=== PATIENT | male | born 1955 | race Two or more races ===

== ENCOUNTER 2024-08-25 06:05 | Day surgery (SDC) | payer OTHER ==
[2024-08-25] MEDS ORDERED: LIDOCAINE HCL 1% 20ML VIAL IJ ONE (10:45)
[2024-08-25] MEDS ORDERED: HEPARIN SODIUM,PORCINE 500 UNITS/5 ML VIAL IV ONE (10:45)
[2024-08-25] MEDS ORDERED: CIPROFLOXACIN IN 5 % DEXTROSE 400 MG/200 ML PIGGYBAG IV ONE (10:45)
[2024-08-25] MEDS ORDERED: FAMOTIDINE/PF 20 MG/10 ML SYRINGE IV SCH (11:30)
[2024-08-25] MEDS ORDERED: 0.9 % SODIUM CHLORIDE 1,000 ML IV SCH (12:45)
[2024-08-25] MEDS ORDERED: FAMOtidine 20 MG TABLET PO SCH (12:47)
[2024-08-25] MEDS ORDERED: DEXAMETHASONE SODIUM PHOSPHATE 4 MG/ML VIAL IV STA (12:47)
[2024-08-25] MEDS ORDERED: DOCUSATE SODIUM 100MG CAP PO SCH (17:00)
[2024-08-25] MEDS ORDERED: DEXAMETHASONE SODIUM PHOSPHATE 4 MG/ML VIAL IV SCH (18:00)
== END 2024-08-25 14:10 | disposition home or self-care (01) ==
LOC: CIR.AMB 06:05 → O/R 12:55 → CIR.AMB 13:30 → O/R 14:10
PROVIDERS: ATTEND Specialist
DX: C83.30 Diffuse large B-cell lymphoma, unspecified site (principal); I10 Essential (primary) hypertension; Z88.0 Allergy status to penicillin
CPT/HCPCS: 36561; C1751

== ENCOUNTER 2024-08-31 06:05 | Emergency (ER) | payer OTHER ==
[~2024-08-31] VITALS: Ht 175.3 cm; Wt 76.2 kg
[2024-08-31 07:24] LABS: PH,URINE 5.5 (5.0-8.0); URINE APPEARANCE Clear; URINE BILIRRUBIN Negative (NEGATIVE); URINE BLOOD Large; URINE COLOR Yellow; URINE GLUCOSE Negative (NEGATIVE); URINE KETONE 15 (NEGATIVE); URINE LEUKOCYTE Moderate; URINE NITRATE Positive; URINE PROTEIN 30 (NEGATIVE); URINE UROBILINOGEN 0.2 E.U./dl
[2024-08-31 07:28] LABS: URINE EPITHELIAL CELLS 7.7 uL (0.0-38.8); URINE WBC 397.6 uL (0.0-23.2)
[2024-08-31 08:17] LABS: URINE BACTERIA > 9821.5 uL (0.0-1933); URINE CAST 0.61 uL (0.0-1.40)
[2024-08-31 08:47] LABS: HEMATOCRIT 39.6 % (39.0-48.0); HEMOGLOBIN 13.1 g/dL (13-16.00); MEAN CELL VOLUME 87.3 fL (80.0-100.00); MEAN CORPUSCULAR HEMOGLOBIN 28.9 pg (27.00-32.0); MEAN CORPUSCULAR HGB CONC 33.2 g/dl (32.0-36.0); PLATELET COUNT 236 K/uL (150-450); RED BLOOD COUNT 4.54 M/uL (4.00-6.00); RED CELL DISTRIBUTION WIDTH 14.1 % (11.5-14.5)
[2024-08-31 09:18] LABS: CALCIUM 9.7 mg/dL (8.5-10.1); CREATININE SERUM 0.96 mg/dL (0.70-1.30); GFR 77.89; POTASSIUM 3.99 mEq/L (3.5-5.1)
[2024-08-31] MEDS ORDERED: PEPCID AC20 MG PO (09:44)
[2024-08-31] MEDS ORDERED: TAMS0.4C PO (09:44)
[2024-08-31] MEDS ORDERED: BACTRIM DS TAB1 EACH PO (09:44)
== END 2024-08-31 10:16 | disposition home or self-care (01) ==
LOC: ER 06:05
PROVIDERS: General Practice
DX: N39.0 Urinary tract infection, site not specified (principal); R33.8 Other retention of urine; Z88.0 Allergy status to penicillin

== ENCOUNTER 2024-09-16 02:14 | Inpatient (IN) | payer OTHER ==
[~2024-09-16] VITALS: Ht 152.4 cm; Wt 63.5 kg
[~2024-09-16 02:14] MED LIST: BACTRIM DS TAB1 EACH PO; PEPCID AC20 MG PO; TAMS0.4C PO
[2024-09-16] MEDS ORDERED: ROSUVASTATIN CA10 MG PO (02:20)
[2024-09-16] MEDS ORDERED: AMLODIPINE BESYL5 MG PO (02:20)
[2024-09-16] MEDS ORDERED: SPIRONOLACTONE25 MG PO (02:21)
[2024-09-16] MEDS ORDERED: ENALAPRIL-HCTZ1 EAC1 PO (02:21)
[2024-09-16] MEDS ORDERED: RAYOS1 MG PO (02:24)
[2024-09-16] MEDS ORDERED: 0.9 % SODIUM CHLORIDE 1,000 ML IV ONE (03:15)
[2024-09-16] MEDS ORDERED: ALBUTEROL SULFATE 3 ML/2.5 MG AMPUL.NEB IH SCH ×3 (03:15→13:00)
[2024-09-16 03:30] LABS: HEMOGLOBIN 13.3 g/dL (13-16.00); MEAN CELL VOLUME 85.6 fL (80.0-100.00); MEAN CORPUSCULAR HEMOGLOBIN 28.3 pg (27.00-32.0); PLATELET COUNT 325 K/uL (150-450); RED CELL DISTRIBUTION WIDTH 15.1 % (11.5-14.5)
[2024-09-16 03:33] LABS: HEMATOCRIT 40.4 % (39.0-48.0)
[2024-09-16 04:02] LABS: ALBUMIN 2.7 gm/dL (3.4-5.0); BILIRUBIN TOTAL 0.57 mg/dL (0.3-1.2); CALCIUM 8.6 mg/dL (8.5-10.1); CREATININE SERUM 1.06 mg/dL (0.70-1.30); GFR 69.47; GLOBULINA 4.9 G/DL (2.4-3.5); POTASSIUM 4.99 mEq/L (3.5-5.1); TOTAL PROTEIN 7.6 gm/dL (6.4-8.2)
[2024-09-16 04:12] LABS: PH,URINE 5.5 (5.0-8.0); URINE APPEARANCE Turbid; URINE BILIRRUBIN Negative (NEGATIVE); URINE BLOOD Large; URINE COLOR Dark Yellow; URINE GLUCOSE Negative (NEGATIVE); URINE KETONE Negative (NEGATIVE); URINE LEUKOCYTE Moderate; URINE NITRATE Positive; URINE PROTEIN 30 (NEGATIVE)
[2024-09-16 04:15] LABS: URINE CAST 3.05 uL (0.0-1.40); URINE EPITHELIAL CELLS 4.6 uL (0.0-38.8); URINE RBC 172.2 uL (0.0-20.8); URINE WBC 297.7 uL (0.0-23.2)
[2024-09-16 04:55] LABS: URINE BACTERIA > 9821.5 uL (0.0-1933)
[2024-09-16 04:57] LABS: URINE CRYSTALS FEW /HPF; URINE MUCUS SCANT; URINE YEAST FEW /hpf
[2024-09-16 05:58] LABS: ABG PH 7.369 (7.35-7.45); ABG PO2 55.5 mmHg (80-100); ABG pCO2 37.8 mmHg (35-45); BASE EXCESS -3.5 mmol/l; BICARBONATE 21.3 mmol/l (23-25); SaO2 87.1 %; Tco2 22.4 mmol/l
[2024-09-16 05:59] LABS: allen test SATISFACTORY; o2 32 %; puncture site RADIAL RIGHT
[2024-09-16] MEDS ORDERED: ALBUTEROL SULFATE 3 ML/2.5 MG AMPUL.NEB IH STA (06:22)
[2024-09-16] MEDS ORDERED: FUROsemide 40 MG/4 ML VIAL IV STA (06:51)
[2024-09-16] MEDS ORDERED: LEVALBUTEROL HCL 0.63 MG/3 ML SOLUTION IH SCH (08:00)
[2024-09-16] MEDS ORDERED: ONDANSETRON HCL 2 MG/ML VIAL IV ONE (08:00)
[2024-09-16 09:19] LABS: ABG PO2 72.4 mmHg (80-100); ABG pCO2 45.4 mmHg (35-45); BASE EXCESS -4.7 mmol/l; BICARBONATE 21.8 mmol/l (23-25); SaO2 92.1 %
[2024-09-16 09:20] LABS: Tco2 23.2 mmol/l; allen test SATISFACTORY; o2 100 %; puncture site RADIAL RIGHT
[2024-09-16] MEDS ORDERED: FAMOTIDINE/PF 20 MG/10 ML SYRINGE IV PUSH SCH (11:57)
[2024-09-16] MEDS ORDERED: levoFLOXacin IN DEXTROSE 5 % 150 ML IV SCH (12:04)
[2024-09-16] MEDS ORDERED: FUROsemide 20 MG/2 ML VIAL IV SCH (12:05)
[2024-09-16] MEDS ORDERED: ACETAMINOPHEN 325 MG TABLET PO PRN (12:15)
[2024-09-16] MEDS ORDERED: 0.9 % SODIUM CHLORIDE 1,000 ML IV SCH (12:15)
[2024-09-16] MEDS ORDERED: ENALAPRIL MALEATE 10 MG TABLET PO SCH (12:20)
[2024-09-16] MEDS ORDERED: TAMSULOSIN HCL 0.4 MG CAP PO SCH (12:21)
[2024-09-16] MEDS ORDERED: AMLODIPINE BESYLATE 5 MG TABLET PO SCH (12:21)
[2024-09-16] MEDS ORDERED: ACETAMINOPHEN 500 MG GEL..CAP PO PRN (12:30)
[2024-09-16 14:03] LABS: ALBUMIN 2.4 gm/dL (3.4-5.0); BILIRUBIN TOTAL 0.29 mg/dL (0.3-1.2); CALCIUM 8.4 mg/dL (8.5-10.1); CREATININE SERUM 0.99 mg/dL (0.70-1.30); GFR 75.17; GLOBULINA 4.3 G/DL (2.4-3.5); POTASSIUM 4.34 mEq/L (3.5-5.1); TOTAL PROTEIN 6.7 gm/dL (6.4-8.2)
[2024-09-16 14:05] VITALS: BP 129/79; O2SAT 99
[2024-09-16 14:05] LABS: C-REACTIVE PROTEIN 18.7 MG/DL (0.00-0.29)
[2024-09-16 15:13] VITALS: BP 125/80; O2SAT 99
[2024-09-16] MEDS ORDERED: AMINO ACIDS/PROTEIN HYDROLYS 30 ML BLIST.PACK PO SCH (17:00)
[2024-09-16] MEDS ORDERED: FAMOTIDINE/PF 20 MG/2 ML VIAL IV SCH (21:00)
[2024-09-16 21:28] LABS: INR 1.05; PROTHROMBIN TIME 11.4 SECONDS (9.0-11.5)
[2024-09-17 00:17] VITALS: BP 98/63; O2SAT 99
[2024-09-17 02:38] VITALS: BP 94/65; O2SAT 98
[2024-09-17 06:04] VITALS: BP 110/73; O2SAT 100
[2024-09-17 07:36] LABS: HEMATOCRIT 33.8 % (39.0-48.0); HEMOGLOBIN 11.4 g/dL (13-16.00); MEAN CELL VOLUME 84.7 fL (80.0-100.00); MEAN CORPUSCULAR HEMOGLOBIN 28.6 pg (27.00-32.0); MEAN CORPUSCULAR HGB CONC 33.8 g/dl (32.0-36.0); PLATELET COUNT 264 K/uL (150-450); RED BLOOD COUNT 3.99 M/uL (4.00-6.00); RED CELL DISTRIBUTION WIDTH 14.9 % (11.5-14.5)
[2024-09-17 08:40] VITALS: BP 109/71; O2SAT 100
[2024-09-17 11:00] VITALS: BP 94/66; O2SAT 100
[2024-09-17] MEDS ORDERED: ONDANSETRON HCL 4 MG in DEXTROSE 5 % IN WATER 50 ML IV PRN (12:15)
[2024-09-17 12:24] LABS: ABG PH 7.394 (7.35-7.45); ABG PO2 172.6 mmHg (80-100); BICARBONATE 26.3 mmol/l (23-25); SaO2 99.5 %; Tco2 27.6 mmol/l; o2 100 %
[2024-09-17 12:25] LABS: allen test SATISFACTORY; puncture site RADIAL RIGHT
[2024-09-17] MEDS ORDERED: ONDANSETRON HCL 2 MG/ML VIAL IV PRN (12:45)
[2024-09-17 15:00] VITALS: BP 104/72; O2SAT 99
[2024-09-17 19:29] LABS: GLU PLEURAL FLUID 103 mg/dl; LDH PLEURAL FLUID 958 U/L
[2024-09-17 19:36] LABS: PLEURAL FLUID APPEARANCE TURBID; PLEURAL FLUID COLOR YELLOW
[2024-09-17 19:41] LABS: CHOL PLEURAL FLUID < 50 mg/dl; TP PLEURAL FLUID 3.5 g/dl
[2024-09-17 20:18] LABS: POLYMORPHONUCLEAR 99 %
[2024-09-17 20:19] LABS: MONONUCLEAR 1 %
[2024-09-17] MEDS ORDERED: FUROsemide 40 MG/4 ML VIAL IV SCH (21:00)
[2024-09-18 00:31] VITALS: BP 100/59; O2SAT 97
[2024-09-18 05:25] VITALS: BP 99/66; O2SAT 100
[2024-09-18 07:15] LABS: HEMATOCRIT 34.3 % (39.0-48.0); HEMOGLOBIN 11.4 g/dL (13-16.00); MEAN CORPUSCULAR HEMOGLOBIN 28.2 pg (27.00-32.0); MEAN CORPUSCULAR HGB CONC 33.2 g/dl (32.0-36.0); PLATELET COUNT 235 K/uL (150-450); RED BLOOD COUNT 4.03 M/uL (4.00-6.00); RED CELL DISTRIBUTION WIDTH 15.1 % (11.5-14.5)
[2024-09-18 07:30] VITALS: BP 95/64; O2SAT 99
[2024-09-18 07:43] LABS: ALBUMIN 1.9 gm/dL (3.4-5.0); BILIRUBIN TOTAL 0.67 mg/dL (0.3-1.2); CALCIUM 8.6 mg/dL (8.5-10.1); CREATININE SERUM 0.8 mg/dL (0.70-1.30); GFR 96.13; GLOBULINA 3.8 G/DL (2.4-3.5); MAGNESIUM 2.2 mg/dL (1.8-2.4); PHOSPHOROUS 2.5 mg/dL (2.5-4.9); POTASSIUM 4.72 mEq/L (3.5-5.1); TOTAL PROTEIN 5.7 gm/dL (6.4-8.2)
[2024-09-18 07:49] LABS: PROSTATIC SPECIFIC ANTIGEN 7.03 NG/ML (0.010-4.00)
[2024-09-18 08:43] LABS: MYCOPLASMA PNEUMONIAE IGM NON REACTIVE (NO REACTIVE)
[2024-09-18 08:46] LABS: ABG PH 7.448 (7.35-7.45); ABG PO2 324.8 mmHg (80-100); ABG pCO2 41.5 mmHg (35-45); BASE EXCESS 3.7 mmol/l; SaO2 99.9 %; Tco2 29.3 mmol/l
[2024-09-18 11:00] VITALS: BP 91/61; O2SAT 97
[2024-09-18] MEDS ORDERED: CEFTRIAXONE SODIUM 2,000 MG VIAL IV SCH (14:00)
[2024-09-18 14:11] VITALS: BP 96/60; O2SAT 93
[2024-09-18 15:58] LABS: allen test SATISFACTORY; o2 100 %; puncture site RADIAL RIGHT
[2024-09-18 23:00] VITALS: BP 93/60; O2SAT 95; O2SAT 99
[2024-09-19] VITALS: BP 87/51; BP 90/55; O2SAT 95
[2024-09-19 01:00] VITALS: BP 84/53; O2SAT 96
[2024-09-19 02:00] VITALS: BP 126/77; BP 82/52; O2SAT 100; O2SAT 98
[2024-09-19 03:00] VITALS: BP 93/59; O2SAT 97
[2024-09-19 07:37] VITALS: BP 100/70; O2SAT 97
[2024-09-19 16:00] VITALS: BP 98/63; O2SAT 97
[2024-09-20 00:39] VITALS: BP 109/59; O2SAT 97
[2024-09-20 08:34] LABS: PH,URINE 5.5 (5.0-8.0); URINE APPEARANCE Cloudy; URINE BILIRRUBIN Negative (NEGATIVE); URINE BLOOD Negative; URINE COLOR Yellow; URINE GLUCOSE Negative (NEGATIVE); URINE KETONE Negative (NEGATIVE); URINE LEUKOCYTE Small; URINE NITRATE Negative; URINE PROTEIN Trace (NEGATIVE)
[2024-09-20 08:41] LABS: URINE BACTERIA 534.1 uL (0.0-1933); URINE CAST 2.13 uL (0.0-1.40); URINE EPITHELIAL CELLS 3.8 uL (0.0-38.8); URINE RBC 104.8 uL (0.0-20.8); URINE WBC 137.9 uL (0.0-23.2)
[2024-09-20 08:53] VITALS: BP 116/66; O2SAT 97
[2024-09-20 09:08] LABS: URINE CRYSTALS MANY /HPF; URINE YEAST MANY /hpf
[2024-09-20 19:05] VITALS: BP 111/68; O2SAT 96
[2024-09-21 00:54] VITALS: BP 107/68; O2SAT 97
[2024-09-21 08:00] VITALS: BP 113/60; O2SAT 96
[2024-09-21 14:27] LABS: ABG PH 7.496 (7.35-7.45); ABG PO2 63.8 mmHg (80-100); ABG pCO2 36.3 mmHg (35-45); BASE EXCESS 4.3 mmol/l; BICARBONATE 27.4 mmol/l (23-25); SaO2 94.2 %; Tco2 28.5 mmol/l; allen test SATISFACTORY; o2 21 %; puncture site RADIAL RIGHT
[2024-09-21 17:33] VITALS: BP 127/70; O2SAT 99
[2024-09-22 00:45] VITALS: BP 103/69; O2SAT 99
[2024-09-22 08:48] LABS: ALBUMIN 1.8 gm/dL (3.4-5.0); BILIRUBIN TOTAL 0.59 mg/dL (0.3-1.2); CALCIUM 7.8 mg/dL (8.5-10.1); CREATININE SERUM 0.54 mg/dL (0.70-1.30); GFR 151.3; GLOBULINA 2.9 G/DL (2.4-3.5); POTASSIUM 3.85 mEq/L (3.5-5.1); TOTAL PROTEIN 4.7 gm/dL (6.4-8.2)
[2024-09-22 09:22] VITALS: BP 108/66; O2SAT 96
[2024-09-22 10:54] LABS: HEMOGLOBIN 9.9 g/dL (13-16.00); MEAN CELL VOLUME 85.7 fL (80.0-100.00); MEAN CORPUSCULAR HEMOGLOBIN 28.4 pg (27.00-32.0); MEAN CORPUSCULAR HGB CONC 33.1 g/dl (32.0-36.0); RED CELL DISTRIBUTION WIDTH 15.1 % (11.5-14.5)
[2024-09-22 10:57] LABS: PLATELET COUNT 86 K/uL (150-450)
[2024-09-22] MEDS ORDERED: FLUCONAZOLE IN NACL,ISO-OSM 200 MG/100 ML PIGGYBAG IV NR (15:00)
[2024-09-22] MEDS ORDERED: LACTOBACILLUS ACIDOPHILUS 1 CAP CAP PO SCH (17:00)
[2024-09-22 17:10] VITALS: BP 107/71; O2SAT 95
[2024-09-22] MEDS ORDERED: fentaNYL CITRATE 50 MCG/ML AMPUL IV ONE (22:30)
[2024-09-22 23:30] VITALS: BP 100/69; O2SAT 95
[2024-09-23 08:00] VITALS: BP 100/72; O2SAT 100
[2024-09-23 08:04] LABS: HEMATOCRIT 30.2 % (39.0-48.0); HEMOGLOBIN 10.1 g/dL (13-16.00); MEAN CELL VOLUME 84.3 fL (80.0-100.00); MEAN CORPUSCULAR HEMOGLOBIN 28.2 pg (27.00-32.0); MEAN CORPUSCULAR HGB CONC 33.5 g/dl (32.0-36.0); RED BLOOD COUNT 3.58 M/uL (4.00-6.00); RED CELL DISTRIBUTION WIDTH 15.1 % (11.5-14.5)
[2024-09-23 08:17] LABS: PLATELET COUNT 82 K/uL (150-450)
[2024-09-23] MEDS ORDERED: FILGRASTIM-AAFI 300 MCG/0.5 ML SYRINGE SUBCUTANEO STA (08:38)
[2024-09-23] MEDS ORDERED: FLUCONAZOLE IN NACL,ISO-OSM 2 MG/ML ML IV SCH (17:00)
[2024-09-23 17:29] VITALS: BP 108/71; O2SAT 98
[2024-09-24] VITALS: BP 111/74; O2SAT 99
[2024-09-24 08:25] VITALS: BP 114/64; O2SAT 99
[2024-09-24] MEDS ORDERED: FILGRASTIM-AAFI 300 MCG/0.5 ML SYRINGE SUBCUTANEO SCH (09:00)
[2024-09-24 11:16] LABS: HEMATOCRIT 31.5 % (39.0-48.0); HEMOGLOBIN 10.6 g/dL (13-16.00); MEAN CELL VOLUME 83.6 fL (80.0-100.00); MEAN CORPUSCULAR HGB CONC 33.5 g/dl (32.0-36.0); RED BLOOD COUNT 3.77 M/uL (4.00-6.00); RED CELL DISTRIBUTION WIDTH 15.1 % (11.5-14.5)
[2024-09-24 11:26] LABS: PLATELET COUNT 81 K/uL (150-450)
[2024-09-24 16:00] VITALS: BP 118/75; O2SAT 96
[2024-09-24 23:40] VITALS: BP 104/76; O2SAT 98
[2024-09-25 07:34] LABS: HEMATOCRIT 31.6 % (39.0-48.0); HEMOGLOBIN 10.5 g/dL (13-16.00); MEAN CELL VOLUME 84.8 fL (80.0-100.00); MEAN CORPUSCULAR HEMOGLOBIN 28.2 pg (27.00-32.0); MEAN CORPUSCULAR HGB CONC 33.2 g/dl (32.0-36.0); RED BLOOD COUNT 3.73 M/uL (4.00-6.00); RED CELL DISTRIBUTION WIDTH 14.8 % (11.5-14.5)
[2024-09-25 08:03] LABS: BILIRUBIN TOTAL 0.32 mg/dL (0.3-1.2); CALCIUM 8.4 mg/dL (8.5-10.1); CREATININE SERUM 0.61 mg/dL (0.70-1.30); GFR 131.45; GLOBULINA 3.1 G/DL (2.4-3.5); POTASSIUM 3.85 mEq/L (3.5-5.1); TOTAL PROTEIN 5.1 gm/dL (6.4-8.2)
[2024-09-25 08:26] VITALS: BP 108/72; O2SAT 99
[2024-09-25] MEDS ORDERED: METOPROLOL SUCCINATE 25 MG TAB.SR.24H PO SCH (09:00)
[2024-09-25 09:12] LABS: PLATELET COUNT 103 K/uL (150-450)
[2024-09-25] MEDS ORDERED: DEXAMETHASONE SODIUM PHOSPHATE 4 MG/ML VIAL IV SCH (13:00)
[2024-09-25 14:13] VITALS: BP 94/65; O2SAT 97
[2024-09-26] VITALS: BP 103/70; O2SAT 95
[2024-09-26 08:00] VITALS: BP 95/68; O2SAT 98
[2024-09-26 16:49] VITALS: BP 101/70; O2SAT 95
[2024-09-27] VITALS: BP 92/65; O2SAT 97
[2024-09-27 02:34] VITALS: BP 105/67
[2024-09-27 07:48] LABS: HEMATOCRIT 30.1 % (39.0-48.0); HEMOGLOBIN 9.9 g/dL (13-16.00); MEAN CELL VOLUME 84.4 fL (80.0-100.00); MEAN CORPUSCULAR HEMOGLOBIN 27.8 pg (27.00-32.0); MEAN CORPUSCULAR HGB CONC 32.9 g/dl (32.0-36.0); RED BLOOD COUNT 3.56 M/uL (4.00-6.00)
[2024-09-27 08:00] VITALS: BP 104/70; O2SAT 99
[2024-09-27 08:32] LABS: PLATELET COUNT 204 K/uL (150-450)
[2024-09-27 16:51] VITALS: BP 111/73; O2SAT 100
[2024-09-28] VITALS: BP 98/60; O2SAT 95
[2024-09-28 08:00] VITALS: BP 119/77; O2SAT 98
[2024-09-28 16:00] VITALS: BP 120/81; O2SAT 98
[2024-09-29 00:15] VITALS: BP 109/61; O2SAT 100
[2024-09-29 07:06] LABS: C-REACTIVE PROTEIN 1.53 MG/DL (0.00-0.29)
[2024-09-29 09:59] VITALS: BP 117/70; O2SAT 98
[2024-09-29 16:00] VITALS: BP 114/63; O2SAT 99
[2024-09-30 00:30] VITALS: BP 111/54; O2SAT 99
[2024-09-30 07:54] LABS: HEMATOCRIT 30.6 % (39.0-48.0); HEMOGLOBIN 9.8 g/dL (13-16.00); MEAN CELL VOLUME 85.1 fL (80.0-100.00); MEAN CORPUSCULAR HEMOGLOBIN 27.3 pg (27.00-32.0); MEAN CORPUSCULAR HGB CONC 32.1 g/dl (32.0-36.0); PLATELET COUNT 308 K/uL (150-450); RED CELL DISTRIBUTION WIDTH 15.7 % (11.5-14.5)
[2024-09-30 10:43] VITALS: BP 101/72; O2SAT 95
[2024-09-30 16:00] VITALS: BP 100/62; O2SAT 96
[2024-09-30] MEDS ORDERED: ONDANSETRON HCL 2 MG/ML VIAL IV SCH (17:00)
[2024-09-30] MEDS ORDERED: DEXAMETHASONE SODIUM PHOSPHATE 4 MG/ML VIAL IV SCH (17:00)
[2024-10-01] VITALS: BP 90/55; O2SAT 100
[2024-10-01 06:54] LABS: HEMATOCRIT 31.8 % (39.0-48.0); HEMOGLOBIN 10.1 g/dL (13-16.00); MEAN CELL VOLUME 84.6 fL (80.0-100.00); MEAN CORPUSCULAR HEMOGLOBIN 26.9 pg (27.00-32.0); MEAN CORPUSCULAR HGB CONC 31.9 g/dl (32.0-36.0); PLATELET COUNT 328 K/uL (150-450); RED BLOOD COUNT 3.76 M/uL (4.00-6.00); RED CELL DISTRIBUTION WIDTH 15.5 % (11.5-14.5)
[2024-10-01 07:14] LABS: CALCIUM 8.1 mg/dL (8.5-10.1); CREATININE SERUM 0.76 mg/dL (0.70-1.30); GFR 101.69; POTASSIUM 4.52 mEq/L (3.5-5.1)
[2024-10-01 08:00] VITALS: BP 98/71; O2SAT 98
[2024-10-01 15:30] VITALS: BP 97/63; O2SAT 97
[2024-10-01] MEDS ORDERED: [UNRECOGNIZED DRUG - OTHER] IV ONE (17:00)
[2024-10-01] MEDS ORDERED: RITUXIMAB 500 MG/50 ML IV ONE (17:00)
[2024-10-01] MEDS ORDERED: CYCLOPHOSPHAMIDE IV ONE (17:00)
[2024-10-01] MEDS ORDERED: VinCRIStine SULFATE 2 MG/2 ML VIAL IV ONE (17:00)
[2024-10-01] MEDS ORDERED: DIPHENHYDRAMINE HCL 50 MG/ML VIAL 1ML IV STA (17:16)
[2024-10-02 01:00] VITALS: BP 96/56; O2SAT 100
[2024-10-02 08:00] VITALS: BP 109/59; O2SAT 98
[2024-10-02 16:00] VITALS: BP 106/64; O2SAT 99
[2024-10-03 01:02] VITALS: BP 109/71; O2SAT 98
[2024-10-03 08:40] LABS: HEMATOCRIT 31.3 % (39.0-48.0); HEMOGLOBIN 10.4 g/dL (13-16.00); MEAN CELL VOLUME 83.6 fL (80.0-100.00); MEAN CORPUSCULAR HEMOGLOBIN 27.8 pg (27.00-32.0); MEAN CORPUSCULAR HGB CONC 33.3 g/dl (32.0-36.0); PLATELET COUNT 270 K/uL (150-450); RED BLOOD COUNT 3.75 M/uL (4.00-6.00); RED CELL DISTRIBUTION WIDTH 15.8 % (11.5-14.5)
[2024-10-03 10:07] VITALS: BP 119/76; O2SAT 99
[2024-10-03 16:27] VITALS: BP 110/65; O2SAT 99
[2024-10-04 01:12] VITALS: BP 99/68; O2SAT 99
[2024-10-04 07:50] LABS: HEMATOCRIT 32.6 % (39.0-48.0); HEMOGLOBIN 10.9 g/dL (13-16.00); MEAN CELL VOLUME 83.3 fL (80.0-100.00); MEAN CORPUSCULAR HEMOGLOBIN 27.9 pg (27.00-32.0); MEAN CORPUSCULAR HGB CONC 33.5 g/dl (32.0-36.0); PLATELET COUNT 266 K/uL (150-450); RED BLOOD COUNT 3.92 M/uL (4.00-6.00); RED CELL DISTRIBUTION WIDTH 15.7 % (11.5-14.5)
[2024-10-04 08:15] LABS: ALBUMIN 2.3 gm/dL (3.4-5.0); BILIRUBIN TOTAL 0.27 mg/dL (0.3-1.2); CALCIUM 8.5 mg/dL (8.5-10.1); CREATININE SERUM 0.65 mg/dL (0.70-1.30); GFR 121.8; GLOBULINA 2.6 G/DL (2.4-3.5); POTASSIUM 4.76 mEq/L (3.5-5.1); TOTAL PROTEIN 4.9 gm/dL (6.4-8.2)
[2024-10-04 10:26] VITALS: BP 111/76; O2SAT 98
[2024-10-04 16:00] VITALS: BP 115/72; O2SAT 96
[2024-10-04 23:56] VITALS: BP 103/62; O2SAT 99
[2024-10-05 06:16] LABS: HEMATOCRIT 31.9 % (39.0-48.0); HEMOGLOBIN 10.6 g/dL (13-16.00); MEAN CELL VOLUME 84.2 fL (80.0-100.00); MEAN CORPUSCULAR HEMOGLOBIN 27.9 pg (27.00-32.0); MEAN CORPUSCULAR HGB CONC 33.1 g/dl (32.0-36.0); PLATELET COUNT 257 K/uL (150-450); RED BLOOD COUNT 3.79 M/uL (4.00-6.00); RED CELL DISTRIBUTION WIDTH 15.9 % (11.5-14.5)
[2024-10-05 08:00] VITALS: BP 106/72; O2SAT 96
== END 2024-10-05 15:37 | disposition home or self-care (01) | DRG 187 ==
LOC: ER 02:15 → ICU-2 12:05 → ICU 09-19 04:17 → SURH 09-19 11:51
PROVIDERS: General Practice; Internal Medicine; Internal Medicine Hematology & Oncology; Internal Medicine Infectious Disease; Radiology Vascular & Interventional Radiology; ADMIT Internal Medicine; ATTEND Internal Medicine
PROC: 3E0F7GC Introduction of Other Therapeutic Substance into Respiratory Tract, Via Natural or Artificial Opening (ICD-10-PCS; 2024-09-16)
PROC: 0W993ZZ Drainage of Right Pleural Cavity, Percutaneous Approach (ICD-10-PCS; principal; 2024-09-17)
PROC: 0W9B3ZZ Drainage of Left Pleural Cavity, Percutaneous Approach (ICD-10-PCS; 2024-09-18)
PROC: 5A09457 Assistance with Respiratory Ventilation, 24-96 Consecutive Hours, Continuous Positive Airway Pressure (ICD-10-PCS; 2024-09-18)
PROC: BB24ZZZ Computerized Tomography (CT Scan) of Bilateral Lungs (ICD-10-PCS; 2024-09-21)
PROC: 0W9930Z Drainage of Right Pleural Cavity with Drainage Device, Percutaneous Approach (ICD-10-PCS; 2024-09-22)
DX: J90 Pleural effusion, not elsewhere classified (principal); C83.30 Diffuse large B-cell lymphoma, unspecified site; N39.0 Urinary tract infection, site not specified; D72.828 Other elevated white blood cell count; R09.02 Hypoxemia; R06.09 Other forms of dyspnea; B96.29 Other Escherichia coli [E. coli] as the cause of diseases classified elsewhere; I10 Essential (primary) hypertension

== ENCOUNTER 2024-10-31 19:21 | Inpatient (IN) | payer OTHER ==
[~2024-10-31] VITALS: Ht 170.2 cm; Wt 45.4 kg
[~2024-10-31 19:21] MED LIST changes: +AMLODIPINE BESYL5 MG PO; +ENALAPRIL-HCTZ1 EAC1 PO; +RAYOS1 MG PO; +ROSUVASTATIN CA10 MG PO; +SPIRONOLACTONE25 MG PO
--- NOTE | 2024-10-31 20:43 | NUR ---
PTE ALERTA Y ORIENTADO X3. REFIERE FIEBRE EN EL HOGAR, REFIERE CATARINO RECIBIDO QUIMIOTERAPIA EL AVINASH PASADO . SE BETH SV BP 80/50 SE REALIZA EKG Y SE PRESENTA A DR. OLIVEIRA QUIEN INDICA UBICAR EN CURLY 13 CON MONITOR CARDIACO Y OXIMETRIA DE PULSO CONTINUA.
[2024-10-31] MEDS ORDERED: 0.9 % SODIUM CHLORIDE 1,000 ML IV SCH (21:00)
--- NOTE | 2024-10-31 21:45 | NUR ---
RN GILMAN EDUCA A PTE SOBRE TX A RECIBIR EN EL AREA EL MISMO REFIERE ENTENDER. CANALIZA PTE Y SE COLOCAN MEDS [facility]. SE REALIZAN MUESTRAS [facility].
[2024-10-31 22:15] LABS: PH,URINE 5.5 (5.0-8.0); URINE APPEARANCE Turbid; URINE BILIRRUBIN Negative (NEGATIVE); URINE BLOOD Large; URINE COLOR Dark Yellow; URINE GLUCOSE Negative (NEGATIVE); URINE KETONE Negative (NEGATIVE); URINE LEUKOCYTE Moderate; URINE NITRATE Negative
[2024-10-31 22:18] LABS: URINE CAST 9.86 uL (0.0-1.40); URINE EPITHELIAL CELLS 81.6 uL (0.0-38.8); URINE RBC 9.5 uL (0.0-20.8); URINE WBC 114.6 uL (0.0-23.2)
[2024-10-31 22:37] LABS: URINE PROTEIN 100 (NEGATIVE)
[2024-10-31 22:39] LABS: BILIRUBIN TOTAL 3.1 mg/dL (0.3-1.2); CALCIUM 7.8 mg/dL (8.5-10.1); CREATININE SERUM 2.5 mg/dL (0.70-1.30); GFR 25.73; POTASSIUM 4.53 mEq/L (3.5-5.1)
[2024-10-31 22:39] LABS: URINE BACTERIA > 9821.5 uL (0.0-1933)
[2024-10-31 22:41] LABS: URINE YEAST NEGATIVE /hpf
[2024-10-31] MEDS ORDERED: VERAPAMIL HCL 5 MG/2 ML VIAL IV ONE (23:00)
[2024-11-01] VITALS (12 sets, daily range): BP systolic 62–103; BP diastolic 35–86; O2SAT 97–100
[2024-11-01] MEDS ORDERED: ACETAMINOPHEN 650 MG SUPP.RECT RECTAL ONE (00:15)
[2024-11-01 03:02] LABS: MEAN CELL VOLUME 79.9 fL (80.0-100.00); MEAN CORPUSCULAR HGB CONC 33.9 g/dl (32.0-36.0); RED BLOOD COUNT 2.38 M/uL (4.00-6.00)
[2024-11-01 03:05] LABS: MEAN CORPUSCULAR HEMOGLOBIN 27.3 pg (27.00-32.0)
[2024-11-01 03:06] LABS: HEMOGLOBIN 6.5 g/dL (13-16.00); PLATELET COUNT 17 K/uL (150-450); RED CELL DISTRIBUTION WIDTH 20.1 % (11.5-14.5)
[2024-11-01] MEDS ORDERED: FUROsemide 20 MG/2 ML VIAL IV SCH (03:15)
[2024-11-01] MEDS ORDERED: NOREPINEPHRINE BITARTRATE 8 MG in DEXTROSE 5 % IN WATER 250 ML IV SCH (03:15)
--- NOTE | 2024-11-01 04:01 | NUR ---
SE TRACI TUBO PILOTOS Y SE REQUISA 2 UNIDADES PRBC Y 1 PLAQUETAS Y SE LLEVA A LABORATORIO.
--- NOTE | 2024-11-01 04:10 | NUR ---
SE RECIBE PTE MASCULINO ALERTA Y ORIENTADO X3 DEL AREA DE OBSERVACION, SE UBICA EN CAMA #18 SE CONECTA A MONITOR CARDIACO Y OXIMETRIA DE PULSO CONTINUA. SE OBSERVA PTE ASISTIDO RESPIRATORIAMENTE CON CANULA NASAL A 3LT/MIN. VENOPUNCION PATENTES X2 EN BRAZO L+, LIBRES DE EDEMA Y ERITEMA RECIBIENDO TERAPIA DE IVFS 0.9NSS BAJANDO A 150ML/HR Y LEVOPHED 8MG/250ML BAJANDO A 10ML/HR. SE OBSERVA PTE CON SONDA URINARIA A GRAVEDAD PROVENIENTE DEL HOGAR CON EGRESO DE ORINA COLOR AMARILLO OSCURO. ABDOMEN BLANDO Y DEPRESIBLE CON PERISTALSIS PRESENTE. SE BETH Y REPORTAN S/V. PENDIENTE TRANSFUSION DE 2 UNIDADES DE PRBCS Y 1O UNIDADES DE PLAQUETAS YA REQUIZADAS ; Y CONSULTAS CON ESPECIALISTAS PENDIENTES A NOTIFICAR. SE ORIENTA A FAMILIAR DE PTE SOBRE ORDENES DE TX Y PROTOCOLO DE UNIDAD REFIERE ENTENDER. SE OBSERVA POR CAMBIOS EN MALIN CONDICION.
--- NOTE | 2024-11-01 07:37 | NUR ---
SE RECIBE PACIENTE EN AREA DE CHEST PAIN CAMA #18. SE OFRECE SUBHASH PARA EVALUAR CONDICION Y BRINDAR CUIDADOS CORRESPONDIENTES. PACIENTE CONECTADO A MONITOR CARDIAC CON SATUROMETRO. CANULA NASAL A 3 LITROS, HORTON PATENTE A GRAVEDAD CON ORINA AMARILLO INTENSO CON SEDIMENTACION.DOS VENOPUNCIONES PATENTES EN BRAZO IZQ ANGIOS #18 Y#20 AREAS LIBRES DE EDEMA Y/O ERITEMA, BAJANDO .9NSS A 100 MLS /HR Y LEVOPHED DE 8 A 12 MLS/HR POR MAQUINA DE IVPUMP. SE MIDEN Y DOCUMENTAN S/V. PACIENTE CON BARANDAS ELEVADAS POR MALIN SEGURIDAD. SE MONITOREA POR CAMBIOS SIGNIFICATIVOS.
--- NOTE | 2024-11-01 09:40 | NUR ---
8:40 AM PACIENTE PRESENTA ESFIERZO RESPIRATORIO SUBIENDO A 30/32 EL RR, CON PULSO EN 150.SATURACION COMIENZA A BAJAR Y PACIENTE NO RESPONE A ESTIMULOS. SE NOTIFICA A DR MARCIA A LAS 8:40 AM Y SE ALICIA CLAVE KEITH DEBIDO A QUE PACIENTE NO RESPONDE, SATURACIONES EN 70 Y BAJANDO. SE CONTINUA ESTIMULANDO AL PACIENTE TEVIN MARCIA REFIERE INTENTA ESTIMULAR TOCANDO LAS PUPILAS Y PACIENTE NO RESPONDE PACIENTE SATURANDO 50%, TEVIN MARCIA ORDENA COLOCAR NON REBREATHING MAS, AUMENTAR LEVOPHED A 25 MLS/HR Y TATE UN PUSH DE .9NSS Y REALIZAR ABG'S. 8:45 AM LLEGA PERSONAL DE ANESTECIA, PACIENTE COMIENZA A RESPONDER POR LO CUAL TEVIN MARCIA INDICA NO SE ENTUBARA PACIENTE Y SE CONTINUARA MONITOREANDO POR CAMBIOS SIGNIFICATIVOS. PACIENTE CON SATURACION EN 88% Y B/P EN 65/34 MAP 39 AL LLEGAR PERSONAL DE ANESTECIA. 9AM PACIENTE CON SATURACIONES EN 97% EN NON REABREATHING, CON PULSO EN 149, RR28. SE CONTINUA MONITOREANDO POR CAMBIOS SIGNIFICATIVOS.
--- NOTE | 2024-11-01 10:05 | NUR ---
SE REALIZA LLAMA A DR ZAMUDIO PARA NOTIFICAR CONDICION DE PACIENTE Y SEGUIMIENTO SE LE COMUNICA CON DR ESCALONA Y KENNY LE INDICA PACIENTE CONTINUA PRESENTADO CUADRO DE DIFICULTAD RESPIRATORIA Y PULSO ELEVADO, POR LO CUAL ACUERDAN PACIENTE SEA ENTUBADO PREVENTIVAMENTE. SE NOTIFICA A ANESTECIA JENNIFFER LOPEZ PARA ENTUVAR A PACIENTE CON DR ESCALONA Y SE LE COMUNICA LA LLAMA A DR ESCALONA. SE CONTINUA MONITOREANDO PACIENTE POR CAMBIOS.
--- NOTE | 2024-11-01 10:54 | NUR ---
PERSONAL DE ANESTECIA SRA LOPEZ ENTUVA PACIENTE A LAS 10:44AM , ESTA ADMINSITRA 4ML DE VERSED A LAS 10:30 AM Y ORDENA 5ML DE PROPOFOL LOS QUE SE ADMINSITRAN A LAS 10:40 AM PARA ENTUVAR CON TUVO [address] ESCALONA Y MIS FULLER DE TERAPIA RESPIRATORIA. PACIENTE CON SATURACIONES AL 100% Y PARAMETROS DEL VENTILADOR [facility] DE DR ESCALONA.
[2024-11-01] MEDS ORDERED: HYDROCORTISONE SODIUM SUCC/PF 100 MG VIAL IV SCH (11:06)
[2024-11-01] MEDS ORDERED: PANTOPRAZOLE SODIUM 40 MG/VIAL VIAL IV SCH (11:09)
[2024-11-01] MEDS ORDERED: AMIODARONE HCL 50 MG/ML AMPUL IV STA (11:43)
[2024-11-01] MEDS ORDERED: AMIODARONE IN DEXTROSE,ISO-OSM 360 MG/200 ML IV.SOLN IV STA (11:44)
[2024-11-01] MEDS ORDERED: MEROPENEM 500 MG/VIAL VIAL IV SCH (12:00)
[2024-11-01] MEDS ORDERED: AMIODARONE IN DEXTROSE,ISO-OSM 360 MG/200 ML IV.SOLN IV SCH (12:00)
[2024-11-01] MEDS ORDERED: FILGRASTIM-AAFI 300 MCG/0.5 ML SYRINGE SUBCUTANEO STA (12:28)
[2024-11-01 13:57] LABS: ABG PO2 189.1 mmHg (80-100); ABG pCO2 21.4 mmHg (35-45); BASE EXCESS -5.5 mmol/l; BICARBONATE 15.5 mmol/l (23-25); SaO2 99.7 %; Tco2 16.2 mmol/l; allen test SATISFACTORY; o2 100 %; puncture site RADIAL LEFT
[2024-11-01 13:59] LABS: ABG PO2 455.5 mmHg (80-100); ABG pCO2 72.4 mmHg (35-45); BASE EXCESS -9.5 mmol/l; BICARBONATE 21.7 mmol/l (23-25); SaO2 99.9 %; Tco2 23.9 mmol/l; allen test SATISFACTORY; puncture site RADIAL RIGHT
[2024-11-01 14:03] LABS: ABG PH 7.095 (7.35-7.45); o2 100 %
[2024-11-01] MEDS ORDERED: SODIUM BICARBONATE 50MEQ/50ML VIAL IV STA (14:16)
[2024-11-01] MEDS ORDERED: DEXTROSE 5 % IN WATER 250 ML IV SCH (14:30)
[2024-11-01 14:46] LABS: ALBUMIN 1.6 gm/dL (3.4-5.0); BILIRUBIN TOTAL 2.18 mg/dL (0.3-1.2); CALCIUM 6.9 mg/dL (8.5-10.1); CREATININE SERUM 3.38 mg/dL (0.70-1.30); GFR 18.17; GLOBULINA 2.7 G/DL (2.4-3.5); POTASSIUM 4.71 mEq/L (3.5-5.1); TOTAL PROTEIN 4.3 gm/dL (6.4-8.2)
[2024-11-01] MEDS ORDERED: MIDAZOLAM HCL 2 MG/2 ML VIAL IV PUSH ONE (16:00)
[2024-11-01] MEDS ORDERED: PROPOFOL 10,000 MCG/ML VIAL IV PUSH ONE (16:00)
[2024-11-01] MEDS ORDERED: ANIDULAFUNGIN 100 MG VIAL IV STA (16:55)
[2024-11-01] MEDS ORDERED: DAPTOMYCIN IV STA (16:56)
[2024-11-01] MEDS ORDERED: DOPamine HCL IN DEXTROSE 5 % 250 ML IV SCH (21:45)
[2024-11-02 07:00] VITALS: BP 54/37; O2SAT 99
[2024-11-02] MEDS ORDERED: DOPamine HCL IN DEXTROSE 5 % 250 ML IV SCH (07:00)
[2024-11-02 08:00] VITALS: BP 73/42
[2024-11-02] MEDS ORDERED: Daptomycin 350 MG/VIAL VIAL IV NR (09:00)
[2024-11-02] MEDS ORDERED: ANIDULAFUNGIN 100 MG VIAL IV SCH (09:00)
[2024-11-02] MEDS ORDERED: EPINEPHRINE HCL/PF 1 MG/ML AMPUL IV PUSH ONE (09:45)
[2024-11-02 12:03] LABS: ABG pCO2 35.1 mmHg (35-45)
[2024-11-02 12:04] LABS: ABG PO2 50.6 mmHg (80-100); BASE EXCESS -20.8 mmol/l; BICARBONATE 9.2 mmol/l (23-25); SaO2 60.8 %; Tco2 10.2 mmol/l
[2024-11-02 12:05] LABS: o2 100 %
[2024-11-02 12:06] LABS: allen test SATISFACTORY; puncture site RADIAL LEFT
[2024-11-02] MEDS ORDERED: FILGRASTIM-AAFI 300 MCG/0.5 ML SYRINGE SUBCUTANEO SCH (17:00)
[2024-11-04] MEDS ORDERED: (FF) Daptomycin 50 MG/ML IV SCH (09:00)
== END 2024-11-02 09:40 | disposition expired | DRG 840 ==
LOC: ER 19:23 → ICU-2 11-01 11:50
PROVIDERS: Emergency Medicine; General Practice; Internal Medicine; ADMIT Internal Medicine; ATTEND Internal Medicine
PROC: 0BH17EZ Insertion of Endotracheal Airway into Trachea, Via Natural or Artificial Opening (ICD-10-PCS; principal; 2024-11-01)
PROC: 4A033R1 Measurement of Arterial Saturation, Peripheral, Percutaneous Approach (ICD-10-PCS; 2024-11-01)
DX: C85.90 Non-Hodgkin lymphoma, unspecified, unspecified site (principal); A41.9 Sepsis, unspecified organism; R09.2 Respiratory arrest; Z20.822 Contact with and (suspected) exposure to COVID-19